=== PATIENT | female | born 1970 | race Caucasian/White ===

== ENCOUNTER 2017-03-31 13:46 | Outpatient (CLI) | payer BC | END 2017-03-31 13:47 | disposition home or self-care (01) | LOC: BICMAMMO 13:46 | PROVIDERS: ATTEND Family Medicine | DX: Z12.31 Encounter for screening mammogram for malignant neoplasm of breast (principal); R13.10 Dysphagia, unspecified; R92.1 Mammographic calcification found on diagnostic imaging of breast | CPT/HCPCS: 76536; 77063; 77067 ==